=== PATIENT | male | born 1950 | race Caucasian/White ===

== ENCOUNTER 2024-03-24 09:42 | Outpatient (AMB) | payer BC, SELFPAY ==
--- NOTE | 2024-03-24 09:48 | MHC.OFFVIS ---
Vital Signs 03/24/24 09:53 Height 5 ft 11 in Weight 169 lb BMI 23.6 BP 144/76 H Blood Pressure Location Lt brachial Position Sitting Pulse 68 Intake Visit Reasons: anal fissure Intake Note: This patient was self referred for an assessment for hemorrhoids vs anal fissure. 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 He says that about 20 years ago, he had surgery for an anal fissure in [place]. He had been doing well since then. However for the past few months, he has been noticing pain with bowel movements. He describes very sharp would linger for about 2 hours. He denies seeing blood with his bowel movements He states that his symptoms seemed to be similar to his anal fissure symptoms 20 years ago. He denies being constipated. COUNT INCLUDES THE [facility] Medical History (Updated 03/24/24 @ 10:05 by Tree Lovell MD) Anal fissure Hyperlipidemia Hypertension Social History (Updated 03/24/24 @ 09:52 by Ayleen Nicholson David) Alcohol intake: current Alcohol intake frequency: holidays/special occasions only Alcohol type: wine Patient Tobacco Use Status: Never used Tobacco Review of Systems Const Denies chills and Denies fever(s) Card Denies chest pain, Denies dyspnea and Denies dyspnea on exertion Resp Denies cough, Denies dyspnea and Denies dyspnea on exertion GI Denies hematochezia and Denies change in bowel habits Denies hematuria and Denies difficulty urinating Musc Denies back pain and Denies limited range of motion Neuro Denies focal weakness and Denies convulsions Psych Denies depression and Denies mood swings Physical Exam Const General: comfortable and no acute distress Orientation/consciousness: patient oriented x3 Neck Neck: Yes no lymphadenopathy Resp Auscultation: clear to auscultation bilaterally Cardio Rhythm: regular rhythm GI Other: Rectal exam shows a posterior midline fissure, seen with retraction of the anus on the distal anoderm Palpation (GI): Soft to palpation, nontender and no guarding Neuro General: patient oriented x3 Assessment & Plan Assessment & Plan (1) Anal fissure: Code(s): K60.2 - Anal fissure, unspecified Category: Medical Plan: He has a posterior midline fissure. I explained to him the option of trying nitroglycerin ointment like Rectiv to decrease hypertonicity of his sphincters. The other option is to proceed with lateral internal sphincterotomy. I explained him the technique of this procedure and he says he still familiar with the He wants to try reactive for now and I will see him in the office in about 3 weeks and see how is doing. Coding Level of Care Code New Pt Level 3 (35250) Diagnoses Anal fissure K60.2
[2024-03-24 09:53] VITALS: BP 144/76; PULSE 68; BMI 23.6
== END 2024-03-24 10:08 | disposition home or self-care (01) ==
PROVIDERS: PCP Internal Medicine; Visit Provider Surgery
DX: K60.2 Anal fissure, unspecified (principal)
CPT/HCPCS: 99203

== ENCOUNTER → 2024-03-24 09:42 | Outpatient (BNVA) | payer BC, SELFPAY | PROVIDERS: PCP Internal Medicine; Visit Provider Surgery ==

== ENCOUNTER 2024-04-14 08:41 | Outpatient (AMB) | payer BC, SELFPAY ==
--- NOTE | 2024-04-14 08:42 | A.OFFVIS_ITS ---
Vital Signs 04/14/24 08:43 Height 5 ft 11 in Weight 167 lb BMI 23.3 BP 123/73 Blood Pressure Location Rt brachial Position Sitting Pulse 66 Intake Visit Reasons: s/p anal fissure Intake Note: This patient presents for an assessment for anal fissure. Patient c/o; reports no complaints. 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 I had prescribed him Rectiv that time. He does state that he feels less pain but he admits that he still has this pain whenever he is passage of stool He denies seeing blood per rectum. He denies having hard stools. [facility] Medical History Anal fissure Hyperlipidemia Hypertension Social History Alcohol intake: current Alcohol intake frequency: holidays/special occasions only Alcohol type: wine Patient Tobacco Use Status: Never used Tobacco Review of Systems Const Denies chills and Denies fever(s) Card Denies chest pain, Denies dyspnea and Denies dyspnea on exertion Resp Denies cough, Denies dyspnea and Denies dyspnea on exertion GI Denies hematochezia and Denies change in bowel habits Denies hematuria and Denies difficulty urinating Musc Denies back pain and Denies limited range of motion Neuro Denies focal weakness and Denies convulsions Psych Denies depression and Denies mood swings Physical Exam Vital Signs: Last Vital Signs Pulse 66 04/14/24 08:43 BP 123/73 04/14/24 08:43 BMI result Body Mass Index 23.3 Const General: comfortable and no acute distress Resp Effort & Inspection: normal respiratory effort Cardio Rate: regular rate GI Other: Rectal exam - retraction of the anal orifice revealed a posterior midline fissure, mild tenderness noted with palpation Palpation (GI): Soft to palpation Assessment & Plan Assessment & Plan (1) Anal fissure: Code(s): K60.2 - Anal fissure, unspecified Category: Medical Plan: He had been started on nitroglycerin for the anal fissure. He admits to having pain although he says that he seems to notice improvement. He wants to hold off on sphincterotomy as this time He says that if his pain persists in the next few weeks, he will come back to schedule for lateral internal sphincterotomy. Coding Level of Care Code Est Pt Level 3 (29781) Diagnoses Anal fissure K60.2
[2024-04-14 08:43] VITALS: BP 123/73; PULSE 66; BMI 23.3
== END 2024-04-14 09:07 | disposition home or self-care (01) ==
PROVIDERS: PCP Internal Medicine; Visit Provider Surgery
DX: K60.2 Anal fissure, unspecified (principal)
CPT/HCPCS: 99213

== ENCOUNTER → 2024-04-14 08:41 | Outpatient (BNVA) | payer BC, SELFPAY | PROVIDERS: PCP Internal Medicine; Visit Provider Surgery ==

== ENCOUNTER → 2024-06-08 09:42 | Outpatient (REF) | payer MEDICARE, SELFPAY ==
--- NOTE | 2024-06-08 09:48 | CA_ITS ---
Acquisition Time: 2024-06-08 09:47:50 Total Exercise Time: 00:06:00 Test Indications: PVC'S, SVT Medications: SEE H Protocol: CAESAR Max HR: 146 BPM 101% of Pred: 144 BPM Max BP: 174/080 mmHG Max Work Load: 7.0 METS Exercise stress test exercise 6 minutes of caesar protocol achieving 101% MPHR without anginal symptoms, with isolated PACs, with brisk HR response , reached 85% at 1 minutes, with normotensive response to exercise, without EKG changes. Test reviewed with Dr. Blood. Reccomend holter and echocardiogram. Referred By: Marcia Ramirez Overread By: Mariana Alford
== END ==
LOC: HO.CARD 09:42
PROVIDERS: PCP Internal Medicine; Visit Provider Nurse Practitioner Family
DX: I49.3 Ventricular premature depolarization (principal)
CPT/HCPCS: 93017

== ENCOUNTER → 2024-06-08 09:48 | Outpatient (BNV) | payer MEDICARE, SELFPAY | PROVIDERS: PCP Internal Medicine; Visit Provider Nurse Practitioner | DX: I49.3 Ventricular premature depolarization (principal) | CPT/HCPCS: 93016; 93018 ==

== ENCOUNTER → 2024-07-15 08:49 | Day surgery (SDC) | payer MEDICARE, SELFPAY ==
[2024-05-24 10:15] VITALS: BMI 23.6
[2024-05-24 14:33] VITALS: BMI 23.7
--- NOTE | 2024-05-25 14:29 | HO.ANESPROP2 ---
HPI - Anesthesia Eval Consult details Narrative: 74yo M for EUA, Lateral Internal Sphincterotomy Cardiac info??? PMFSH Active Problems Active Problems: All Active Problems Anal fissure (Acute) Hyperlipidemia (Acute) Hypertension (Acute) Past Medical History Medical History (Updated 05/24/24 @ 09:22 by Rhianna Deng, RN) PVC (premature ventricular contraction) Hx of supraventricular tachycardia Mitral valve prolapse Anal fissure Hyperlipidemia Hypertension Surgical History Surgical History (Updated 05/24/24 @ 09:23 by Rhianna Deng RN) Hx of toe surgery Hx of vasectomy Hx of colonoscopy History of rectal sphincterotomy (~2003) Social History Social History (Updated 05/23/24 @ 14:23 by Rhianna Deng RN) Household Members: Spouse Housing: House Are you a primary senior care provider to a significant other at home: No Do you presently have visiting nurse or other home services: No Alcohol intake: current Alcohol intake frequency: holidays/special occasions only Alcohol type: wine Patient Tobacco Use Status: Never used Tobacco Use of substances other than those prescribed or required for medical reasons: No Have you been hit, kicked, punched, or otherwise hurt by someone within the past year? If so, by whom?: No Are you DNR?: No Advance Directives: No Advance Directives Information Provided: Yes Advance Directives on File: No Recently lost weight without trying: No Nutrition Risks: No Nutritional Risk Meds Allergies Allergy/AdvReac Type Severity Reaction Status Date / Time No Known Allergies Allergy Verified 05/24/24 08:02 Home Medications ?Medication ?Instructions ?Recorded ?Confirmed ?Last Taken ?Type aspirin 81 mg tablet,delayed 81 mg PO DAILY 03/24/24 05/24/24 Unknown History release (Adult Aspirin Regimen) atorvastatin 20 mg tablet 20 mg PO DAILY 03/24/24 05/24/24 Unknown History metoprolol succinate 50 mg 50 mg PO DAILY 03/24/24 05/24/24 Unknown History tablet,extended release 24 hr Exam Height,Weight and Vital Signs: Height 5 ft 11 in Weight 77.111 kg
[2024-07-08 13:16] VITALS: BMI 23.4
--- NOTE | 2024-07-13 11:43 | P.CONAN_ITS ---
Documented by User: Vivien Browning NP 07/14/24 10:02 HPI - Anesthesia Eval Consult details Narrative: 74yo M for EUA, Lateral Internal Sphincterotomy Cardiac optimized. Follows [facility], 05/2024 stress test, high activity tolerance PMFSH Active Problems Active Problems: All Active Problems Anal fissure (Acute) Hyperlipidemia (Acute) Hypertension (Acute) Past Medical History Medical History PVC (premature ventricular contraction) Hx of supraventricular tachycardia Mitral valve prolapse Anal fissure Hyperlipidemia Hypertension Surgical History Surgical History Hx of toe surgery Hx of vasectomy Hx of colonoscopy History of rectal sphincterotomy (~2003) Social History Social History Household Members: Spouse Housing: House Are you a primary medicare sales representative to a significant other at home: No Do you presently have visiting nurse or other home services: No Alcohol intake: current Alcohol intake frequency: does not drink Alcohol type: wine Patient Tobacco Use Status: Never used Tobacco Use of substances other than those prescribed or required for medical reasons: No Advance Directives: No Advance Directives Information Provided: Yes Meds Allergies Allergy/AdvReac Type Severity Reaction Status Date / Time No Known Allergies Allergy Verified 07/15/24 10:19 Home Medications ?Medication ?Instructions ?Recorded ?Confirmed ?Last Taken ?Type aspirin 81 mg tablet,delayed 81 mg PO DAILY 03/24/24 07/15/24 07/14/24 History release (Adult Aspirin Regimen) atorvastatin 20 mg tablet 20 mg PO DAILY 03/24/24 07/15/24 Unknown History metoprolol succinate 50 mg 50 mg PO DAILY 03/24/24 07/15/24 07/15/24 History tablet,extended release 24 hr Exam Height,Weight and Vital Signs: Height 5 ft 11 in Weight 76.204 kg Pertinent Lab Results Pertinent Lab Results: CBC and BMP 02/2024 from [facility] Narrative Narrative: EKG 02/2024 SR @ 62 Exercise Stress 05/2024 Protocol: CAESAR Max HR: 146 BPM 101% of Pred: 144 BPM Max BP: 174/080 mmHG Max Work Load: 7.0 METS Exercise stress test exercise 6 minutes of caesar protocol achieving 101% MPHR without anginal symptoms, with isolated PACs, with brisk HR response , reached 85% at 1 minutes, with normotensive response to exercise, without EKG changes. Test reviewed with Dr. Blood. Reccomend holter and echocardiogram. Holter 02/2024 26 SVT runs occurred, the run with the fastest interval lasting 6 beats with a max rate of 182bpm, longest lasting 8.5 secs with avg rate of 146bpm Assessment and Plan Assessment Anesthesia Assessment: Chart Reviewed Documented by User: Veronica Garcia MD 08/02/24 08:34 PMFSH Past Medical History Medical History PVC (premature ventricular contraction) Hx of supraventricular tachycardia Mitral valve prolapse Anal fissure Hyperlipidemia Hypertension Family History Family history of problems with anesthesia: No Surgical History Surgical History Hx of toe surgery Hx of vasectomy Hx of colonoscopy History of rectal sphincterotomy (~2003) History of Problems with Anesthesia: No Social History Social History Household Members: Spouse Housing: House Are you a primary medicare sales representative to a significant other at home: No Do you presently have visiting nurse or other home services: No Alcohol intake: current Alcohol intake frequency: does not drink Alcohol type: wine Patient Tobacco Use Status: Never used Tobacco Use of substances other than those prescribed or required for medical reasons: No Advance Directives: No Advance Directives Information Provided: Yes Meds Allergies Allergy/AdvReac Type Severity Reaction Status Date / Time No Known Allergies Allergy Verified 07/15/24 10:19 Home Medications ?Medication ?Instructions ?Recorded ?Confirmed ?Last Taken ?Type aspirin 81 mg tablet,delayed 81 mg PO DAILY 03/24/24 07/15/24 07/14/24 History release (Adult Aspirin Regimen) atorvastatin 20 mg tablet 20 mg PO DAILY 03/24/24 07/15/24 Unknown History metoprolol succinate 50 mg 50 mg PO DAILY 03/24/24 07/15/24 07/15/24 History tablet,extended release 24 hr Exam Airway Mallampati Class: II TM Dist: >3cm Neck ROM: Full Heart: rrr Lungs: cta Assessment and Plan Assessment Anesthesia Assessment: Anesthesia Plan Discussed Final Anesthetic Review Family History of Problems with Anesthesia: No History of Problems with Anesthesia: No NPO: Yes ASA Class: II Final Preanesthetic Review: No Changes in Pt Med Stat, Meds/Allgs Chart Reviewed, Consent Obtained/Reviewed and Anes Risks/Benef Reviewed Patient Risk: Low Procedure Risk: Low Anesthetic Plan Anesthetic Plan: GA Disposition: Standard PACU
[2024-07-15 10:22] VITALS: BMI 23.0
[2024-07-15 11:09] VITALS: BMI 23.0
[2024-07-15] MEDS: Lactated Ringers 1,000 ML 100 ML IVCONT (11:33)
[2024-07-15 11:45] VITALS: BP 164/97; PULSE 78; RESP 14; TEMP 36.4; O2SAT 98
--- NOTE | 2024-07-15 12:48 | PC.NURSE ---
Surgeon with urgent case. D/W pt. potential for extended wait time. Pt decided to reschedule his surgery. IV d/c'd. Process explained to pt/tolerated well. Dr. Lovell office to contact pt to reschedule.
== END ==
LOC: HO.SSS 08:50
PROVIDERS: PCP Internal Medicine; Visit Provider Surgery
DX: K60.2 Anal fissure, unspecified (principal); Z53.8 Procedure and treatment not carried out for other reasons

== ENCOUNTER 2024-08-02 07:19 | Day surgery (SDC) | payer MEDICARE, SELFPAY ==
[2024-08-02 07:49] VITALS: BMI 23.0
[2024-08-02 08:09] VITALS: BP 145/79; PULSE 65; RESP 16; TEMP 36.7; O2SAT 97
[2024-08-02] MEDS: Lactated Ringers 1,000 ML 100 ML IVCONT (08:28)
--- NOTE | 2024-08-02 09:08 | MHC.SHP ---
Pre-Procedural Eval Section A - 24 Hr Update-Section A only Date of Service: 08/02/24 Section B - Complete if H&P > 30 days Chief Complaint: Anal fissure, unspecified Details of Present Illness: has had severe anal pain after BMs, exam c/w anal fissure Relevant Social History: None Medical History: Significant History (HTN, tachycardia) Allergies: Allergies Allergy/AdvReac Type Severity Reaction Status Date / Time No Known Allergies Allergy Verified 07/15/24 10:19 Review of Systems Sugical H&P ROS: Negative: Constitution, Cardiovascular, Respiratory and Gastrointestinal Exam Surgical H&P Exam: Normal: Heart, Normal: Lungs and Normal: Abdomen Exam Comment: posterior midline fissure Plan Diagnosis/Plan: Unchanged I have reviewed the history and physical and performed a pertinent physical examination on my patient. No changes have occurred unless specified. Time Spent With Patient Time: Total time managing care of this patient today ____ minutes.
--- NOTE | 2024-08-02 09:32 | P.OP_ITS ---
Operative Note Operative Note Date of Service: 08/02/24 Narrative: Preop diagnosis: Chronic anal fissure Postop diagnosis: The same Procedure: Exam under anesthesia, left lateral internal sphincterotomy Surgeon: Tree Lovell MD The patient is a 74-year-old male with chronic anal pain especially with bowel movements. He did have what appeared to be a sentinel tag on the posterior midline on exam in the office. Findings were consistent with an anal fissure. He understood the technique of the planned procedure as well as the risks, benefits, and alternatives. He was brought to the operating room. He was placed in prone mayra-knife position under general anesthesia via endotracheal tube. The buttocks were retracted with wide tape laterally The perianal area was prepped and draped in the usual sterile fashion. A surgical time-out was done. The patient received Cefotan 2 g IV preoperatively Examination of the anal orifice revealed what appeared to be an sentinel pile in the posterior midline. Retraction of the buttocks also showed a posterior midline fissure as well as an anterior midline fissure. He did have some hemorrhoidal tissue but there were no other pathology in the anal canal I infiltrated the perianal area with lidocaine 1%. I palpated for the intersphincteric groove on the left side. I made a short incision on the skin overlying this intersphincteric groove with a blade 15. I used blunt dissection with a hemostat to define the intersphincteric plane and isolated the internal sphincter. I divided the internal sphincter with electrocautery as well as Metzenbaum scissors down to the level of the dentate line. I closed the incis ion with a running chromic 3-0 stitch. There was note of good hemostasis Once hemostasis was confirmed, I infiltrated the perianal area with Marcaine 0.5% for postop analgesia. The procedure was then completed The patient tolerated the procedure well. There were no immediate complications. Initial and final counts of sponges and instruments were correct. Estimated blood loss was about 10 cc. The patient was extubated without difficulty and transferred to the recovery room with stable vital signs.
[2024-08-02 09:39] VITALS: BP 120/84; PULSE 64; RESP 14; TEMP 36.3; O2SAT 98
[2024-08-02 09:40] VITALS: BP 120/73; PULSE 64; RESP 14; O2SAT 97
[2024-08-02 09:45] VITALS: BP 113/77; PULSE 61; RESP 14; O2SAT 98
[2024-08-02 09:50] VITALS: BP 112/79; PULSE 63; RESP 14; O2SAT 98
[2024-08-02 10:05] VITALS: BP 118/84; PULSE 60; RESP 18; TEMP 36.1; O2SAT 98
== END 2024-08-02 10:46 | disposition home or self-care (01) ==
PROVIDERS: PCP Internal Medicine; Visit Provider Surgery
PROC: (CPT 46080; principal; 2024-08-02 09:00)
DX: K60.1 Chronic anal fissure (principal); G89.29 Other chronic pain; K62.89 Other specified diseases of anus and rectum; I10 Essential (primary) hypertension; E78.5 Hyperlipidemia, unspecified; Z79.82 Long term (current) use of aspirin; Z79.899 Other long term (current) drug therapy
CPT/HCPCS: 46080; J2003; J2704; J2795; J3010

== ENCOUNTER → 2024-08-02 07:19 | Outpatient (BNV) | payer MEDICARE, SELFPAY | PROVIDERS: PCP Internal Medicine; Visit Provider Surgery | DX: K60.1 Chronic anal fissure (principal) | CPT/HCPCS: 46080 ==

== ENCOUNTER 2024-08-17 08:15 | Outpatient (AMB) | payer MEDICARE, SELFPAY ==
--- NOTE | 2024-08-17 08:17 | MHC.OFFVIS ---
Vital Signs 08/17/24 08:22 Height 6 ft Weight 167 lb BMI 22.6 BP 141/83 H Blood Pressure Location Rt brachial Position Sitting Pulse 76 Intake Visit Reasons: S/P lateral internal sphincterotomy Intake Note: This patient presents for post-op assessment status post lateral internal sphincterotomy. Pt c/o; reports no complaints. 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 Frost for a postop visit. Patient apparently has had no significant problems. Sphincterotomy site seemed to be healing well. [facility] Medical History PVC (premature ventricular contraction) Hx of supraventricular tachycardia Mitral valve prolapse Anal fissure Hyperlipidemia Hypertension Surgical History History of rectal sphincterotomy (~08/02/24) Hx of toe surgery Hx of vasectomy Hx of colonoscopy History of rectal sphincterotomy (~2003) Social History Household Members: Spouse Housing: House Are you a primary childcare director to a significant other at home: No Do you presently have visiting nurse or other home services: No Alcohol intake: current Alcohol intake frequency: does not drink Alcohol type: wine Patient Tobacco Use Status: Never used Tobacco Physical Exam Vital Signs: Last Vital Signs Pulse 76 08/17/24 08:22 BP 141/83 H 08/17/24 08:22 BMI result Body Mass Index 22.6 Assessment & Plan Assessment & Plan (1) Anal fissure: Code(s): K60.2 - Anal fissure, unspecified Category: Medical Plan: Status post sphincterotomy. The patient was seen by Dr. Frost in the office and appears to be doing well postop. Coding Level of Care Code Global (90231) Diagnoses Anal fissure K60.2
[2024-08-17 08:22] VITALS: BP 141/83; PULSE 76; BMI 22.6
== END 2024-08-17 09:05 | disposition home or self-care (01) ==
PROVIDERS: PCP Internal Medicine; Visit Provider Surgery
DX: K60.2 Anal fissure, unspecified (principal)
CPT/HCPCS: 99024

== ENCOUNTER → 2024-08-17 08:15 | Outpatient (BNVA) | payer MEDICARE, SELFPAY | PROVIDERS: PCP Internal Medicine; Visit Provider Surgery | DX: K60.2 Anal fissure, unspecified (principal) | CPT/HCPCS: 99212 ==

== ENCOUNTER 2024-08-31 09:31 | Outpatient (AMB) | payer MEDICARE, SELFPAY ==
[2024-08-31 09:33] VITALS: BMI 22.6
--- NOTE | 2024-08-31 09:33 | A.OFFVIS_ITS ---
Vital Signs 08/31/24 09:33 Height 6 ft Weight 167 lb 0.002 oz BMI 22.6 Intake Visit Reasons: 2 week S/P lateral internal sphincterotomy Intake Note: This patient presents for two week follow-up status post lateral internal sphincterotomy. 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 He continues to do well. He says he no longer has the pain that he had with bowel movements prior to surgery. He does admit that she still has some pain lingers after bowel movements although this is much improved. He denies any bleeding. [facility] Medical History PVC (premature ventricular contraction) Hx of supraventricular tachycardia Mitral valve prolapse Anal fissure Hyperlipidemia Hypertension Surgical History History of rectal sphincterotomy (~08/02/24) Hx of toe surgery Hx of vasectomy Hx of colonoscopy History of rectal sphincterotomy (~2003) Social History Household Members: Spouse Housing: House Are you a primary grounds caretaker to a significant other at home: No Do you presently have visiting nurse or other home services: No Alcohol intake: current Alcohol intake frequency: does not drink Alcohol type: wine Patient Tobacco Use Status: Never used Tobacco Review of Systems Const Denies chills and Denies fever(s) Physical Exam Vital Signs: BMI result Body Mass Index 22.6 Const General: comfortable and no acute distress GI Other: Sphincterotomy site is well healed, not infected, no tenderness, no induration, no discharge Assessment & Plan Assessment & Plan (1) Anal fissure: Code(s): K60.2 - Anal fissure, unspecified Category: Medical Plan: Status post lateral internal sphincterotomy. He does describe some lingering pain after bowel movements but this is much improved compared to before. I advised him to continue with stool softeners and supplementation. I told him to come back to the office if he needs to be re-evaluated down the line. Coding Level of Care Code Global (89671) Diagnoses Anal fissure K60.2
== END 2024-08-31 09:45 | disposition home or self-care (01) ==
LOC: HO.HGS 09:32
PROVIDERS: PCP Internal Medicine; Visit Provider Surgery
DX: K60.2 Anal fissure, unspecified (principal)
CPT/HCPCS: 99024

== ENCOUNTER → 2024-08-31 09:31 | Outpatient (BNVA) | payer MEDICARE, SELFPAY | PROVIDERS: PCP Internal Medicine; Visit Provider Surgery | DX: Z48.815 Encounter for surgical aftercare following surgery on the digestive system (principal); Z98.890 Other specified postprocedural states | CPT/HCPCS: 99212 ==

== ENCOUNTER 2024-10-20 14:54 | Outpatient (AMB) | payer MEDICARE, SELFPAY ==
--- NOTE | 2024-10-20 15:02 | A.OFFVIS_ITS ---
Vital Signs 10/20/24 15:08 Height 6 ft Weight 167 lb 0.002 oz BMI 22.6 Intake Visit Reasons: s/p internal sphincterotomy Intake Note: This patient presents for follow-up assessment status post Exam under anesthesia, left lateral internal sphincterotomy. Pt c/o; reports no complaints. 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 He wanted to be checked as he says he still notices some small amounts of discharge periodically. He denies any pain. He does state that his bowel movements are much better now. He denies any bleeding. 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 [facility] Medical History PVC (premature ventricular contraction) Hx of supraventricular tachycardia Mitral valve prolapse Anal fissure Hyperlipidemia Hypertension Surgical History History of rectal sphincterotomy (~08/02/24) Hx of toe surgery Hx of vasectomy Hx of colonoscopy History of rectal sphincterotomy (~2003) Social History Household Members: Spouse Housing: House Are you a primary career technical counselor to a significant other at home: No Do you presently have visiting nurse or other home services: No Alcohol intake: current Alcohol intake frequency: does not drink Alcohol type: wine Patient Tobacco Use Status: Never used Tobacco Review of Systems Const Denies chills and Denies fever(s) Card Denies chest pain, Denies dyspnea and Denies dyspnea on exertion Resp Denies cough, Denies dyspnea and Denies dyspnea on exertion GI Denies hematochezia and Denies change in bowel habits Denies hematuria and Denies difficulty urinating Musc Denies back pain and Denies limited range of motion Neuro Denies focal weakness and Denies convulsions Psych Denies depression and Denies mood swings Physical Exam Vital Signs: BMI result Body Mass Index 22.6 Const General: comfortable and no acute distress GI Other: Rectal exam shows this sphincterotomy site to be actually well healed, no area of induration, no actual drainage currently, no tenderness, no cellulitis Assessment & Plan Assessment & Plan (1) Anal fissure: Code(s): K60.2 - Anal fissure, unspecified Category: Medical Plan: Status post sphincterotomy. I assured him that currently there is no evidence of any infection. Furthermore, it appears that the sphincterotomy site is actually dry and healing well. I told him to be more patient as I am confident that this will completely heal. He is otherwise happy that the anal pain with bowel movements due to his fissure has resolved. Coding Level of Care Code Global (13763) Diagnoses Anal fissure K60.2
[2024-10-20 15:08] VITALS: BMI 22.6
== END 2024-10-20 15:40 | disposition home or self-care (01) ==
PROVIDERS: PCP Internal Medicine; Visit Provider Surgery
DX: K60.2 Anal fissure, unspecified (principal)
CPT/HCPCS: 99024

== ENCOUNTER → 2024-10-20 14:54 | Outpatient (BNVA) | payer MEDICARE, SELFPAY | PROVIDERS: PCP Internal Medicine; Visit Provider Surgery | DX: Z09 Encounter for follow-up examination after completed treatment for conditions other than malignant neoplasm (principal); Z87.19 Personal history of other diseases of the digestive system | CPT/HCPCS: 99212 ==

== ENCOUNTER 2024-12-28 08:31 | Outpatient (AMB) | payer MEDICARE, SELFPAY ==
--- NOTE | 2024-12-28 08:33 | MHC.OFFVIS ---
Vital Signs 12/28/24 08:39 Height 6 ft Weight 171 lb 6 oz BMI 23.2 BP 142/66 H Blood Pressure Location Rt brachial Position Sitting Pulse 87 Intake Visit Reasons: sphincterotomy issues Intake Note: This patient presents for sphinctertomy issues. Pt c/o; reports no rectal bleeding or pain. Passport Support Manager Required: No Accompanied by: Self / Same As Patient Allergies No Known Allergies Allergy (Verified 12/28/24 08:40) Medication List - Last Reconciled 12/28/24 by Tree Lovell MD aspirin (Adult Aspirin Regimen) 81 mg PO DAILY atorvastatin 20 mg PO DAILY docusate sodium (Colace) 100 mg PO BID ibuprofen 600 mg PO Q6H PRN metoprolol succinate ER 50 mg PO DAILY nitroglycerin 0.4%(w/w) (Rectiv) 1 inch AL BID 1 week oxycodone-acetaminophen 5-325 mg (Percocet) 1 tab PO Q4-6H PRN HPI HPI sphincterotomy issues: Details: He would undergone sphincterotomy last year anal fissure and describes lingering issues. He says he still has this periodic scanty mucosal discharge from his anus. He says this this can be sometimes annoying. With regards to his bowel movements, he says that this feels much better after his sphincterotomy. He denies significant pain. He does state that this is a 2nd sphincterotomy. The 1st 1 was done more than 30 years ago [facility] Medical History (Updated 12/28/24 @ 08:58 by Tree Lovell MD) Anal discharge PVC (premature ventricular contraction) Hx of supraventricular tachycardia Mitral valve prolapse Anal fissure Hyperlipidemia Hypertension Surgical History History of rectal sphincterotomy (~08/02/24) Hx of toe surgery Hx of vasectomy Hx of colonoscopy History of rectal sphincterotomy (~2003) Social History Household Members: Spouse Housing: House Are you a primary acute care assistant to a significant other at home: No Do you presently have visiting nurse or other home services: No Alcohol intake: current Alcohol intake frequency: does not drink Alcohol type: wine Patient Tobacco Use Status: Never used Tobacco Review of Systems Const Denies chills and Denies fever(s) Card Denies chest pain Resp Denies cough GI Denies abdominal pain and Denies hematochezia Physical Exam Vital Signs: Last Vital Signs Pulse 87 12/28/24 08:39 BP 142/66 H 12/28/24 08:39 BMI result Body Mass Index 23.2 Const General: comfortable and no acute distress Resp Effort & Inspection: normal respiratory effort Cardio Rate: regular rate GI Other: Rectal exam - no perianal lesions Office Procedures Anoscopy He was in mayra-knife position. The anoscope was gently inserted. A full examination of the anal canal was done. I did not see any fissures there was note of some fibrotic changes on the previous fissure site but there was no new fissure. He would good sphincter tone. There was no bleeding. There was some tenderness digital exam. [id number] Assessment & Plan Assessment & Plan (1) Anal discharge: Code(s): R19.8 - Other specified symptoms and signs involving the digestive system and abdomen Category: Medical Plan: He describes periodic discharge from his anus but she says can be annoying as this can state his underwear. Anoscopy does not reveal any lesions or any concerning findings I explained to him that this discharge may be secondary to some degree of sphincter dysfunction after 2 sphincterotomies. I told him I will try him on some her supplement to help with consistency of his stools and hopefully help with this anal discharge I will see him again in the office in about 3 months to see how is doing. He has comfortable with the plan. Coding Level of Care Code Est Pt Level 3 (05332) Diagnoses Anal discharge R19.8 CPT Codes Details - CPT: 60719-[id number] ([id number])
[2024-12-28 08:39] VITALS: BP 142/66; PULSE 87; BMI 23.2
--- OUTSIDE RECORDS SUMMARY | 2024-12-28 09:04 | XMS_ITS | Encounter Summary ---
Author Organization [facility] Address [address] [place] [address] Phone Care Team Providers Care Autographer Name Role Phone Kenny Beebe MD Primary Care Provider [phone] Gaurav Durán TELEPRINTER INSTALLER Unavailable [phone] Encounter Details Date Type Department Care Team (Late st Contact Info) Description 03/08/2024 Procedure Pass [facility] [address] [place] [address] Social History Tobacco Use Types Packs/Day Years Used Date Smoking Tobacco: Never Smokeless Tobacco: Never Alcohol Use Standard Drinks/Week Comments Yes 7 (1 standard drink = 0.6 oz pur e alcohol) 1 glass of wine with dinner Child or Family Care Answer Date Record ed Do you have problems with on e of the following making it difficult for you to work, study, or receive health care? No 01/13/2023 Education Answer Date Recorded Are you interested in help w ith more adult education (for example, completing high school, GED, job training, learning the Armenian language, technical skills, or developing parenting skills)? No 01/13/2023 Food Answer Date Recorded Within the past 6 months we worried whether our food would run out before we got money to buy more. Never True 01/13/2023 Within the past 6 months the food we bought just didn't last and we didn't have enough money to get more. Never True Residential Stability Answer Date Recor ded What is your housing situation today? I have [place] 01/13/2023 How many times have you moved in the past 12 mon ths? One time 01/13/2023 Paying for Meds Answer Date Recorded Do you have trouble paying for medicines? No 01/13/2023 Paying Utility Bills Answer Date Record ed Do you have trouble paying your heating or elect ricity bill? No 01/13/2023 Transportation Answer Date Recorded Has the lack of transportati on kept you from medical appointments or from getting medications? No 01/13/2023 Unemployment Answer Date Recorded Are you currently unemployed or working on a part-time or temporary basis, and looking for work? I choose not to answer 01/13/2023 Digital Access Answer Date Recorded No 03/23/2023 No 03/23/2023 Reliable internet access at home? Not on file 03/23/2023 Device with a working camera? Not on file Sex and Gender Information Value Date Recorded Sex Assigned at Male 06/27/2023 2:10 AM EDT Gender Identity Male 06/27/2023 2:10 AM EDT Sexual Orientation Not on file documented as of this encounter Plan of Treatment Upcoming Encounters Date Type Department Care Team (Late st Contact Info) Description 01/02/2025 1:40 PM EDT Office Visit [facility] [address] [place] [address] Dr [address] [place] [address] Bartolome Schmid MD [address] [place] [address], [address] [address] 08/24/2025 8:00 AM EDT Office Visit [facility] [address] Mars [address] [place] [phone] Zeferino Sheridan MD [address] [place] [phone] documented as of this encounter Visit Diagnoses Not on filedocumented in this encounter Additional Health Concerns Assessment Noted Time PHQ-2 Depression Total Score: 0 01/14/20 23 3:02 PM EDT documented as of this encounter Care Teams Autographer Relationship Specialty Start Date End Date Kenny Beebe MD [address] [place] [address] [email or web address] PCP - General Internal Medicine 09/22/22 Gaurav Durán CNP [address] [place] [phone] Family Medicine 09/22/22 documented as of this encounter Additional Source Comments The information contained in this document represents components of the legal health record. It is not the complete legal health record.[facility]
--- OUTSIDE RECORDS SUMMARY | 2024-12-28 09:04 | XMS_ITS | Clinical Summary ---
Author Organization [facility] Address [address] [place] [address] Care Team Providers Care Senior It Recruiter Name Role Phone Unavailable Primary Care Provider Unavailabl e Source Comments PLEASE NOTE, if this patient is a minor, it may be UNLAWFUL to discuss sensitive information that is contained in these records (such as FAMILY PLANNING, MENTAL HEALTH or SUBSTANCE ABUSE) with the minor patient's parent or other person without the patient's specific authorization.[facility] Allergies No known active allergies Medications magnesium oxide 400 mg cap Take 400 mg by mouth once daily. 30 Cap 11 10/13/2014 Active aspirin [address] 81 mg into mouth, chew and swallow once daily. Active fluticasone propionate (FLONASE) 50 mcg/actuation nasal spray Place 1 [place] in both nostrils once daily 16 g 1 02/08/2021 Active atorvastatin (LIPITOR) 20 mg tablet TAKE 1 TABLET BY MOUTH ONCE A DAY 30 Tablet 12/26/2022 Active metoprolol succinate XL (TOPROL-XL) 50 mg 24 hr tabletIndicatio ns:Palpitations TAKE 1 TABLET BY MOUTH 2 TIMES A DAY 60 Tablet 12/29/2022 Active Active Problems Problem Noted Date Diagnosed Date Mitral valve prolapse 02/14/2016 Overview (04/18/2019): Overview: Mid systolic click on physical examination. PVC's (premature ventricular contractions) 02/13 Overview (04/18/2019): Overview: Symptomatic. He has failed multiple medications. SVT (supraventricular tachycardia) ([facility]) Overview (04/18/2019): Overview: Recurrent highly symptomatic nonsustained SVT (commonly post exertional). Mechanism undefined. Options discussed in detail. Unresponsive to beta blockade. His QoL is significantly impaired by his recurrent nonsustained SVT. Pure hypercholesterolemia 05/08/2015 Overview (05/08/2015): Significant. As of April 2015, most recent LDL 180. Likely familial. Premature ventricular contractions, symptomatic 05/08/2015 Palpitations due to premature ventricular contra ctions 08/01/2014 Overview (04/18/2019): Overview: Associated with PACs, PVCs and brief runs of SVT which appear to be atrial tachycardia. He was often symptomatic with SR 60-80 bpm on his Zio Monitor. 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 Resolved Problems Problem Noted Date Diagnosed Date Resolved Date Liver lesions on MRI 05/08/2015 017 Immunizations Name Administration Dates Next Due Moderna COVID-19 Vaccine, re d cap blue label, 12+ Primary Series 02/08/2021,01/11/2021 PNEUMOCOCCAL CONJUGATE PCV 13 04/19/2019 TDAP 03/09/2014 Zoster, Live Vaccine (Zostavax) 07/20/2014 Family History Medical History Relation Name Comments Diabetes Brother Amblyopia Neg Blindness Neg Cancer Neg Cataracts Neg Fuchs' Dystrophy Neg Glaucoma Neg Hypertension Neg Macular degeneration Neg Retinal detachment Neg Strabismus Neg Relation Name Status Comments Brother Social History Tobacco Use Types Packs/Day Years Used Date Smoking Tobacco: Some Days Cigars Smokeless Tobacco: Never Tobacco Cessation:Counseling Given: Yes Comments:2-3 cigars/yr Alcohol Use Standard Drinks/Week Comments Yes 0 (1 standard drink = 0.6 oz pur e alcohol) 1.5 glass of red wine q nt Social Connections Answer Date Recorded Connectedness 0 07/25/2024 Financial Resource Strain Answer Date R ecorded Financial Resource Strain 0 2018 Stress Answer Date Recorded Stress 0 06/14/2019 Physical Activity Answer Date Recorded Physical Activity 0 06/14/2019 Food Insecurity Answer Date Recorded Food 0 07/21/2024 Transportation Needs Answer Date Record ed Transportation 0 06/14/2019 Housing Stability Answer Date Recorded Housing 0 06/14/2019 Safety and Environment Answer Date Leonardo rded Safety 0 06/14/2019 Utilities Answer Date Recorded Utilities 0 06/14/2019 Employment Answer Date Recorded Stress 0 07/25/2024 Sex and Gender Information Value Date Recorded Sex Assigned at Not on file Legal Sex Male 4:54 PM PDT Gender Identity Not on file Sexual Orientation Not on file Last Filed Vital Signs Vital Sign Reading Time Taken Comments Blood Pressure 134/85 02/08/2021 9:36 AM EDT Pulse 76 02/08/2021 9:36 AM EDT Temperature 36.3 ??C (97.3 ??F) 02/08/2021 9:36 AM ED T Respiratory Rate - - Oxygen Saturation 99% 02/08/2021 9:36 AM EDT Inhaled Oxygen Concentration - - Weight 79.8 kg (176 lb) 02/08/2021 9:36 AM EDT Height 179.1 cm (5' 10.5 ) 02/08/2021 9:36 AM ED T Body Mass Index 24.9 02/08/2021 9:36 AM EDT Plan of Treatment Health Maintenance Due Date Last Done Comments Hepatitis C Screening 1950 Tobacco Screening 1950 Imm-Zoster, Recombinant (2 of 3) 09/14/2014 07/20/20 14 Imm-Pneumococcal 65+ (2 of 2 - PPSV23) 06/14/2019 04/19/2019 Tobacco Cessation Counseling (#1) 08/11/2020 Falls Prevention 08/12/2020 08/12/2019 Medicare Annual Wellness Visit 08/12/2020 1 , 03/05/2018, 03/16/2017, Additional history exists Hypertension Screening (#1) 02/08/2022 05/08/2015 [id number] ( season) 2024 021, 01/11/2021 Imm-Influenza (#1) 2024 Alcohol and Drug Screen 10/26/2024 08/12/20 19, 12/07/2017, 03/16/2017, Additional history exists Depression Annual Screen 10/26/2024 019, 10/28/2018, 03/16/2017, Additional history exists Imm-DTaP/Tdap/Td Discontinued 03/09/2014 Colorectal Cancer Screening Discontinued FIT/gFOBT Discontinued 09/17/2019, 03/09/2014 CT Colonography Discontinued Colonoscopy Discontinued Fecal DNA Discontinued Flexible Sigmoidoscopy Discontinued Procedures Procedure Name Priority Date/Time Associated Diagnosis Comments FECAL GLOBIN BY IMMUNOCHEMISTRY (FIT) Routine 09/17/2019 9:55 AM EST Screen for colon cancer from Last 3 Months or Most Recently Relevant to Health Maintenance Results * FECAL GLOBIN BY IMMUNOCHEMISTRY (FIT) (09/17/2019 9:55 AM EST) FECAL GLOBIN BY IMMUNOCHEMISTRY See Note [facility] Comment: ??FECAL GLOBIN BY IMMUNOCHEMISTRY ?Micro Number: ?[id number] ??Test Status: ? Final ??Specimen Source: ?? STOOL ??Specimen Quality: ??Adequate ??Fecal Globin: ?Not Detected Stool specimen (specimen) Stool specimen / Unknown 09/17/2019 9:55 AM EST 09/22/2019 10:31 AM EST Joseph Eaton NP LAB - NO BLOOD DRAW Final Result [facility] [address] [address], [facility] [address] [address] from Last 3 Months or Most Recently Relevant to Health Maintenance Insurance BCBS MEDICARE ADVANTAGE Member Subscriber Plan / Payer (Ef fective 2013-Present) Name:SarahOlegario Relation to Subscriber:Self Name:Sarah Olegario C Payer ID:[id number] Type:Medicare Address: [facility] [id number] [place] [address]
--- OUTSIDE RECORDS SUMMARY | 2024-12-28 09:04 | XMS_ITS | Clinical Summary ---
Author Organization [facility] Address [address] [facility] [address] [place] [address] Phone Care Team Providers Care Production Technician Name Role Phone Kenny Beebe MD Primary Care Provider Gaurav Durán WIRE TWISTING MACHINE OPERATOR Unavailable [phone] Allergies No known active allergies Medications Medication Sig Dispensed Refills Start Date End Date Status magnesium oxide 250 mg (150 mg elemental) Tab Take 250 mg by mouth daily. Active aspirin 81 MG EC tablet Take 81 mg by mouth daily. Active metoprolol succinate (TOPROL-XL) 50 MG 24 hr tabletIndications:SVT (supraventricular tachycardia) Take 1.5 tablets (75 mg total) by mouth daily. 07/05/2024 Active Additional Information Patient taking differently: 50 mgOral Daily, Reported on 08/24/2024 ibuprofen (ADVIL,MOTRIN) 600 MG tablet Take 600 mg by mouth every 6 (six) hours as needed. 08/02/2024 Active atorvastatin (LIPITOR) 20 MG tabletIndications:Hyp erlipidemia, unspecified hyperlipidemia type TAKE 1 TABLET BY MOUTH EVERY DAY 90 tablet 10/25/2024 Active Active Problems Problem Noted Date Diagnosed Date Premature atrial contraction 08/24/2024 Assessment & Plan (08/24/2024 12:35 PM EDT): Forreston is low currently. Continue beta-jason Hyperlipidemia 01/20/2023 Assessment & Plan (01/20/2023 2:27 PM EDT): We will check a lipid profile and liver enzymes in the context of this physical, goal for the LDL is below 100 if possible. Routine general medical exam ination at a health care facility 01/20/2023 Assessment & Plan (01/20/2023 2:29 PM EDT): He is in remarkably good health but if his numbness of the feet widens out we can set up for a neurology visit. 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 For this he is on the metoprolol. So we will do a PSA, Chem-12, lipid profile today and also screen for hepatitis C. Will see him back in 1 years time. His vitals were stable. On health maintenance we will obtain a PSA. Regarding BPH recommending super beta prostate for prostate size reduction and decrease in frequency of urination. Please give at least 3 months trial before discontinuing. Palpitations 02/14/2016 Overview (02/14/2016): Associated with PACs, PVCs and brief runs of SVT which appear to be atrial tachycardia. He was often symptomatic with SR 60-80 bpm on his Zio Monitor. 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 PVC's (premature ventricular contractions) 02/13 Overview (02/14/2016): Symptomatic. He has failed multiple medications. Assessment & Plan (08/24/2024 12:35 PM EDT): Forreston is low currently. Continue metoprolol SVT (supraventricular tachycardia) 02/14/2016 Overview (02/14/2016): Recurrent highly symptomatic nonsustained SVT (commonly post exertional). Mechanism undefined. Options discussed in detail. Unresponsive to beta blockade. His QoL is significantly impaired by his recurrent nonsustained SVT. Assessment & Plan (08/24/2024 12:35 PM EDT): Patient is currently on metoprolol. We had a detailed discussion with regards to medication versus ablation. In view of nonsustained episodes of SVT it is difficult to map the tachycardia and chances of success with ablation are on the lower side. Counseled the patient to increase metoprolol to 75 mg once a day Mitral valve prolapse 02/14/2016 Overview (02/14/2016): Mid systolic click on physical examination. Encounters Date Type Department Care Team Description 10/25/2024 Refill [facility] [address] [place] [address] Kenny Beebe MD Medication Refill from Last 3 Months Immunizations Name Administration Dates Next Due Pneumococcal conjugate PCV13 04/19/2019 Tdap 03/09/2014 Zoster live 07/20/2014 Social History Tobacco Use Types Packs/Day Years Used Date Smoking Tobacco: Never Smokeless Tobacco: Never Tobacco Cessation:Counseling Given: Not Answered Alcohol Use Standard Drinks/Week Comments Yes 7 [...] high school, GED, job training, learning the Pashto language, technical skills, or developing parenting skills)? [...] your housing situation today? I have [place] 01/13/2023 How many times have you moved [...] with a working camera? Not on file Intimate Partner Violence Answer Date R ecorded Are you denied basic needs s uch as food, clothing, or medical care? No 03/17/2024 In the past 12 months have y ou been in a relationship with a person who hurts, threatens, or tries to control you? No 03/17/2024 Are you denied basic needs s uch as food, clothing, or medical care? No 03/17/2024 In the past 12 months have y ou been in a relationship with a person who hurts, threatens, or tries to control you? No 03/17/2024 Sex and Gender Information Value Date Recorded Sex Assigned at Male 06/27/2023 2:10 AM EDT Gender Identity Male 06/27/2023 2:10 AM EDT Sexual Orientation Not on file Last Filed Vital Signs Vital Sign Reading Time Taken Comments Blood Pressure 130/90 08/24/2024 7:31 AM EDT Pulse 73 08/24/2024 7:31 AM EDT Temperature 36.7 ??C (98.1 ??F) 03/17/2024 12:05 PM E DT Respiratory Rate 14 03/17/2024 12:05 PM EDT Oxygen Saturation 98% 08/24/2024 7:31 AM EDT Inhaled Oxygen Concentration - - Weight 75.3 kg (166 lb) 08/24/2024 7:31 AM EDT Height 180.3 cm (5' 10.98 ) 08/24/2024 7:31 AM E DT Body Mass Index 23.17 08/24/2024 7:31 AM EDT Plan of Treatment Upcoming Encounters Date Type Department Care Team (Late st Contact Info) Description 01/02/2025 1:40 PM EDT Office Visit [facility] [address] [place] [address] [address] [place] [address] Bartolome Schmid MD [address] [facility], [address] [place] [address] 08/24/2025 8:00 AM EDT Office Visit [facility] [address] [place] [address] Zeferino Sheridan MD [address] [place] [phone] [email or web address] Health Maintenance Due Date Last Done Comments HEPATITIS B SCREENING 1968 ZOSTER VACCINES (2 of 3) 09/14/2014 07/20/2014 PNEUMOCOCCAL VACCINES (50+ years) (2 of 2 - PPSV23) 04/19/2020 04/19/2019 RSV VACCINE (1 - 1-dose 75+ series) 2023 DEPRESSION SCREENING 01/14/2024 01/13/2023 Adult Td,Tdap Booster 03/09/2024 03/09/2014 INFLUENZA VACCINE (#1) 2024 COVID-19 VACCINE (3 - 2023-2 5 season) 2024 02/08/2021, 01/11/2021 LIPID PANEL 01/21/2028 01/20/2023, 05/03/2019, 05/03/2019 HEPATITIS C SCREENING Completed 01/20/2023 SMOKING STATUS SCREENING (On ce After 26 Yrs) Completed 08/24/2024 HEPATITIS A VACCINES Aged Out No long er eligible based on patient's age to complete this topic HEPATITIS B VACCINES Aged Out No long er eligible based on patient's age to complete this topic HIB VACCINES Aged Out No longer eligi ble based on patient's age to complete this topic MENINGOCOCCAL VACCINES (ACWY) Aged Out No longer eligible based on patient's age to complete this topic Medical Devices Not on file Procedures Procedure Name Priority Date/Time Associated Diagnosis Comments LIPID PANEL Routine 01/20/2023 2:23 PM EDT Hyperlipidemia, unspecified hyperlipidemia type HEPATITIS C ANTIBODY, QUALITATIVE Routine 01/20/2023 2:23 PM EDT Need for hepatitis C screening test from Last 3 Months or Most Recently Relevant to Health Maintenance Results * Hepatitis C antibody, qualitative (01/20/2023 2:23 PM EDT) HCV NON-REACTIV E NON-REACTI VE [facility] Blood 01/20/2023 2:23 PM EDT 01/20/2023 2:26 PM EDT Kenny Beebe MD LAB BLOOD ORDERABLES Performing Organization Address City/[facility]/ZIP Co de Phone Number [address] [address] * (ABNORMAL) Lipid panel (01/20/2023 2:23 PM EDT) HDL 77 mg/dL [facility] Comment: ? Interpretation <40 mg/dL: Low HDL cholesterol (major risk factor for CHD) Greater than or equal to 60 mg/dL: High HDL cholesterol ( negative risk factor for CHD) HDL - cholesterol is affected by a number of factors, e.g. smoking, excerise, hormones, sex and age. CHOLESTEROL 190 0 - 240 mg/dL [facility] TRIGLYCERIDES 56 30 - 160 mg/dL [facility] LDL 102 50 - 129 mg/dL [facility] Comment: LDL levels in terms of risk for coronary heart disease: <100 mg/dL: Optimal 100-129 mg/dL: Near or above optimal 130-159 mg/dL: Borderline high 160-189 mg/dL: High >190 mg/dL: Very High CARDIAC RISK RATIO 2.5(L) 3.4 - 5.0 [facility] Blood 01/20/2023 2:23 PM EDT 01/20/2023 2:26 PM EDT Kenny Beebe MD LAB BLOOD ORDERABLES [address] [address] from Last 3 Months or Most Recently Relevant to Health Maintenance Care Teams Production Technician Relationship Specialty Start Date End Date Kenny Beebe MD [address] [facility] [place] [email or web address] PCP - General Internal Medicine 09/22/22 Gaurav Durán CNP [address] [place] [phone] Family Medicine 09/22/22 Additional Source Comments The information contained in this document represents components of the legal health record. It is not the complete legal health record.[facility]
== END 2024-12-28 09:00 | disposition home or self-care (01) ==
PROVIDERS: PCP Internal Medicine; Visit Provider Surgery
DX: R19.8 Other specified symptoms and signs involving the digestive system and abdomen (principal)
CPT/HCPCS: 46600; 99213

== ENCOUNTER → 2024-12-28 08:31 | Outpatient (BNVA) | payer MEDICARE, SELFPAY | PROVIDERS: PCP Internal Medicine; Visit Provider Surgery | DX: R19.8 Other specified symptoms and signs involving the digestive system and abdomen (principal); Z98.890 Other specified postprocedural states | CPT/HCPCS: 46600; 99212 ==